=== PATIENT | female | born 1960 | race Hispanic/Latino ===

== ENCOUNTER 2022-06-20 18:10 | Emergency (ER) | payer OTHER ==
[~2022-06-20] VITALS: Ht 157.5 cm; Wt 86.2 kg
[2022-06-20] MEDS ORDERED: ACETAMINOPHEN 500 MG TABLET PO ONE (20:00)
[2022-06-20] MEDS ORDERED: 0.9%NACL 1000ML 1,000 ML IV ONE (20:00)
[2022-06-20] MEDS ORDERED: CIPR7.5D OT (20:08)
[2022-06-20] MEDS ORDERED: CEPH500B PO (20:08)
[2022-06-20] MEDS ORDERED: IBUP-2070 PO (20:08)
[2022-06-20 20:10] LABS: APPEARANCE,URINE CLOUDY (CLEAR); BASOPHILS % (AUTO) 0.2 % (0.0-5.0); BILIRUBIN,URINE NEGATIVE (NEGATIVE); COLOR,URINE LIGHT-YELLOW (YELLOW); GLUCOSE, URINE (UA) NEGATIVE (NEGATIVE); HEMATOCRIT 37.6 % (36-48); KETONES,URINE NEGATIVE (NEGATIVE); LEUKOCYTE ESTERASE ,URINE 25 Leu/uL (NEGATIVE); LYMPHOCYTES % (AUTO) 13.6 % (21.0-51.0); MEAN CORPUSCULAR HEMOGLOBIN 28.3 pg (27.0-33.0); MEAN CORPUSCULAR VOLUME 85.8 fL (79-99); MONOCYTES % (AUTO) 6.2 % (3.0-13.0); NEUTROPHILS % (AUTO) 79.6 % (40.0-77.0); NITRATE,URINE NEGATIVE (NEGATIVE); OCCULT BLOOD,URINE NEGATIVE (NEGATIVE); PH,URINE 7.5 (5.0-8.0); PLATELET COUNT (AUTO) 215 K/uL (130-400); PROTEIN,URINE 10 mg/dL (NEGATIVE); RED BLOOD CELL COUNT(AUTO) 4.38 MIL/uL (4.00-5.50); RED CELL DISTRIBUTION WIDTH 13.5 % (11.0-15.5); UROBILINOGEN,URINE 0.2 mg/dL (0.2-1.0); WHITE BLOOD COUNT (AUTO) 14.3 K/uL (4.8-10.8)
[2022-06-20 20:14] LABS: BACTERIA,URINE RARE /HPF (None Seen); MUCUS,URINE RARE LPF (None Seen); SQUAMOUS EPITHELIAL CELL,UR FEW /HPF (0-2); YEAST,URINE BUDDING FEW /HPF (None Seen)
[2022-06-20 20:17] LABS: CREATININE 0.9 mg/dL (0.5-1.5); POTASSIUM 3.4 mmol/L (3.5-5.1)
[2022-06-20 20:22] LABS: ALBUMIN 3.8 g/dL (3.5-5.0); CRP QUANTITATIVE 133.9 mg/L (0.00-9.0); TOTAL PROTEIN, SERUM 8.6 g/dL (6.0-8.3)
[2022-06-20] MEDS ORDERED: ZOSYN 3.375GM +NS 50ML IVPB ONE (20:30)
[2022-06-20] MEDS ORDERED: IBUPROFEN 600 MG TABLET PO ONE (20:30)
[2022-06-20] MEDS ORDERED: IBUPROFEN 200 MG TAB ONE (20:35)
[2022-06-20] MEDS ORDERED: IBUPROFEN 400 MG TABLET ONE (20:36)
[2022-06-20] MEDS ORDERED: ZOSYN 3.375GM+NS 50ML 50 ML IVPB ONE (20:36)
[2022-06-20] MEDS ORDERED: POTASSIUM BICARB/CIT AC 25 MEQ TABLET.EFF PO ONE (21:00)
[2022-06-20 21:17] VITALS: BP 118/74
== END 2022-06-20 21:29 | disposition home or self-care (01) ==
LOC: EDH 18:10
DX: H60.502 Unspecified acute noninfective otitis externa, left ear (principal); H60.12 Cellulitis of left external ear; Z20.822 Contact with and (suspected) exposure to COVID-19
CPT/HCPCS: 99285; 96365; 70486; 87635; 96361; 80053; 85025; 87804 ×2; 83605; 86140; 81001; 36415; C9803; J7030; J2543